=== PATIENT | female | born 1940 | race Caucasian/White ===

== ENCOUNTER 2024-05-01 15:35 | Inpatient (IN) | payer MEDICARE, OTHER ==
[~2024-05-01] VITALS: Ht 162.6 cm; Wt 30.0 kg
[2024-05-01] MEDS: ipratropium/albuterol 3ml nebule NEB STA (16:28)
[2024-05-01 17:44] LABS: BASOPHILS # (AUTO) 0.1 X10'3 (0-0.2); BASOPHILS % (AUTO) 1.1 % (0-1); EOSINOPHILS # (AUTO) 0.1 X10'3 (0-0.9); EOSINOPHILS % (AUTO) 2.5 % (0-6); HEMATOCRIT 36.4 % (35.0-45.0); HEMOGLOBIN 11.7 g/dl (12.0-16.0); LYMPHOCYTES # (AUTO) 1.7 X10'3 (1.1-4.8); MEAN CORPUSCULAR HEMOGLOBIN 32.5 PG (27.0-31.0); MEAN CORPUSCULAR HGB CONC 32.3 g/dL (33.0-36.5); MEAN CORPUSCULAR VOLUME 100.6 FL (78-98); MEAN PLATELET VOLUME 10.9 FL (7.4-10.4); MONOCYTES # (AUTO) 0.4 X10'3 (0-0.9); MONOCYTES % (AUTO) 8.2 % (2-12); NEUTROPHILS # (AUTO) 2.9 X10'3 (1.8-7.7); NEUTROPHILS % (AUTO) 56.2 % (42-75); PLATELET COUNT 178 X10'3 (140-440); RED BLOOD COUNT 3.62 X10'6 (4.20-5.60); RED CELL DISTRIBUTION WIDTH 14.3 % (11.5-14.5); WHITE BLOOD COUNT 5.2 X10'3 (4.5-11.0)
[2024-05-01 17:57] LABS: ALANINE AMINOTRANSFERASE 13 U/L (12-78); ALBUMIN 3.5 G/DL (3.4-5.0); ALBUMIN/GLOBULIN RATIO 0.9 (1.1-1.5); ALKALINE PHOSPHATASE 49 IU/L (46-116); ANION GAP 4 (8-16); ASPARTATE AMINO TRANSFERASE 26 U/L (10-37); BILIRUBIN,TOTAL 0.7 MG/DL (0.1-1.0); BLOOD UREA NITROGEN 30 MG/DL (7-18); CALCIUM 8.9 MG/DL (8.5-10.1); CHLORIDE 99 MMOL/L (99-107); SODIUM 139 MMOL/L (135-145); TOTAL CARBON DIOXIDE 35.9 MMOL/L (24-32); TOTAL PROTEIN 7.4 G/DL (6.4-8.2); eCRCL 19 ML/MIN; eGFR 53 ML/MIN
[2024-05-01 18:03] LABS: GLUCOSE 95 MG/DL (70-104); PRO BRAIN NATRIURETIC PEPTIDE 5745 PG/ML (0-450)
[2024-05-01] MEDS: albuterol 2.5 MG/3 ML nebule NEB ONE (18:05)
[2024-05-01] MEDS: mag hydrox/Alum hydrox/simeth 30ml oral suspension PO ONE (18:14)
[2024-05-01] MEDS: methylPREDNISolone sod succ 125mg/2ml vial IV ONE (18:18)
[2024-05-01] MEDS ORDERED: magnesium sulf-water 4G/100mL 100 ML IV PRN (18:20)
[2024-05-01] MEDS ORDERED: magnesium Cl slow-release 64mg tablet PO PRN (18:20)
[2024-05-01] MEDS ORDERED: potassium Cl 20 mEq SR tablet PO PRN ×2 (18:20)
[2024-05-01] MEDS ORDERED: potassium Cl 40MEQ/1/2NS 520ml 520 ML IV PRN (18:20)
[2024-05-01] MEDS ORDERED: ipratropium/albuterol 3ml nebule NEB PRN (18:20)
[2024-05-01] MEDS ORDERED: magnesium sulf-water 2g/50mL 50 ML IV PRN (18:20)
[2024-05-01] MEDS ORDERED: ondansetron/PF 4mg/2ml inj IV PRN (18:20)
[2024-05-01] MEDS: PERFLUTREN PROTEIN-A MICROSPHR (Optison) 0.22 MG/ML 3ML VIAL IV ONE (18:50)
[2024-05-01 19:44] LABS: BILIRUBIN,URINE SMALL (Neg); CLARITY,URINE SLIGHTLY CLOUDY (Clear); COLOR,URINE AMBER (Yellow); GLUCOSE, URINE NEGATIVE (Neg); KETONES,URINE 15 mg/dl (Neg); LEUKOCYTE ESTERASE ,URINE NEGATIVE (Neg); NITRITES, URINE NEGATIVE (Neg); OCCULT BLOOD,URINE TRACE-INTACT (Neg); PH,URINE 5.5 (4.8-8.0); PROTEIN,URINE 100 mg/dl (Neg); UROBILINOGEN,URINE 0.2 E.U/dL (0.2-1.0)
[2024-05-01 19:45] VITALS: PULSE 85; RESP 18; O2SAT 99
[2024-05-01 19:50] LABS: UA COLLECTION TYPE NON-SPECIFIED
[2024-05-01] MEDS: K and/or MAG REPLACEMENT MC SCH (20:00)
[2024-05-01 20:08] LABS: BACTERIA,URINE 1+ /HPF (Neg); COARSE GRANULAR CAST 0-3 /LPF (NEGATIVE); FINE GRANULAR CAST 0-3 /LPF (NEGATIVE); MUCUS STRANDS FEW /LPF (Neg); RENAL CELLS, URINE MODERATE /HPF; SQUAMOUS EPITHELIAL CELL,UR MANY /LPF (FEW); TRANSITIONAL EPI CELLS,URINE FEW /HPF; WBC,URINE 0-4 /HPF (0-4)
[2024-05-01] MEDS: methylPREDNISolone sod succ/PF 40mg inj. IV SCH (21:41)
[2024-05-01] MEDS: normal saline 1000ml 1,000 ML IV SCH (21:41)
[2024-05-01] MEDS: ipratropium/albuterol 3ml nebule NEB PRN (22:34)
[2024-05-01 22:35] VITALS: PULSE 97; RESP 22; O2SAT 97
[2024-05-01 22:46] VITALS: PULSE 80; RESP 20
[2024-05-02 03:19] LABS: EOSINOPHILS % (AUTO) 0 % (0-6); MEAN CORPUSCULAR HEMOGLOBIN 32.5 PG (27.0-31.0); NEUTROPHILS # (AUTO) 2.9 X10'3 (1.8-7.7); PLATELET COUNT 166 X10'3 (140-440); WHITE BLOOD COUNT 3.1 X10'3 (4.5-11.0)
[2024-05-02 03:21] LABS: BASOPHILS % (AUTO) 0.2 % (0-1); HEMATOCRIT 33.1 % (35.0-45.0); HEMOGLOBIN 10.9 g/dl (12.0-16.0); LYMPHOCYTES # (AUTO) 0.2 X10'3 (1.1-4.8); LYMPHOCYTES % (AUTO) 7.1 % (21-51); MEAN CORPUSCULAR HGB CONC 32.9 g/dL (33.0-36.5); MEAN CORPUSCULAR VOLUME 98.9 FL (78-98); MEAN PLATELET VOLUME 10.1 FL (7.4-10.4); MONOCYTES % (AUTO) 0.5 % (2-12); NEUTROPHILS % (AUTO) 92.2 % (42-75); RED BLOOD COUNT 3.35 X10'6 (4.20-5.60); RED CELL DISTRIBUTION WIDTH 14.1 % (11.5-14.5)
[2024-05-02 03:30] LABS: ANION GAP 3 (8-16); BLOOD UREA NITROGEN 33 MG/DL (7-18); BUN/CREATININE RATIO 26.8 (10.0-20.0); CALCIUM 8.5 MG/DL (8.5-10.1); CHLORIDE 101 MMOL/L (99-107); CREATININE 1.23 MG/DL (0.40-0.90); MAGNESIUM 1.7 MG/DL (1.5-2.4); POTASSIUM 4.4 MMOL/L (3.5-5.1); SODIUM 137 MMOL/L (135-145); TOTAL CARBON DIOXIDE 33.3 MMOL/L (24-32); eCRCL 16 ML/MIN; eGFR 41 ML/MIN
[2024-05-02 03:42] LABS: GLUCOSE 163 MG/DL (70-104)
[2024-05-02 04:17] LABS: LARGE PLATELETS MODERATE; PLATELET ESTIMATE NORMAL
[2024-05-02 04:18] LABS: GIANT PLATELET FEW
[2024-05-02 10:00] VITALS: BP 141/47; PULSE 78; RESP 18; TEMP 97.5; O2SAT 97
[2024-05-02 15:11] VITALS: PULSE 79; RESP 18; O2SAT 99
[2024-05-02 18:00] VITALS: BP 138/49; PULSE 80; RESP 30; TEMP 97.9; O2SAT 98
[2024-05-02 20:00] VITALS: RESP 14; O2SAT 98
[2024-05-02 20:16] VITALS: PULSE 68; RESP 18; O2SAT 95
[2024-05-02 22:00] VITALS: BP 114/72; PULSE 77; RESP 18; TEMP 98.7; O2SAT 97
[2024-05-03] VITALS (12 sets, daily range): BP systolic 111–134; BP diastolic 40–59; PULSE 67–92; RESP 16–20; TEMP 97.8–98.2; O2SAT 96–99
[2024-05-03 07:39] LABS: BASOPHILS % (AUTO) 0.1 % (0-1); EOSINOPHILS % (AUTO) 0 % (0-6); HEMATOCRIT 31.7 % (35.0-45.0); HEMOGLOBIN 10.4 g/dl (12.0-16.0); LYMPHOCYTES # (AUTO) 0.5 X10'3 (1.1-4.8); LYMPHOCYTES % (AUTO) 8.7 % (21-51); MEAN CORPUSCULAR HEMOGLOBIN 32.4 PG (27.0-31.0); MEAN CORPUSCULAR HGB CONC 32.9 g/dL (33.0-36.5); MEAN CORPUSCULAR VOLUME 98.5 FL (78-98); MEAN PLATELET VOLUME 10.5 FL (7.4-10.4); MONOCYTES # (AUTO) 0.1 X10'3 (0-0.9); MONOCYTES % (AUTO) 1.8 % (2-12); NEUTROPHILS # (AUTO) 5.3 X10'3 (1.8-7.7); NEUTROPHILS % (AUTO) 89.4 % (42-75); PLATELET COUNT 176 X10'3 (140-440); RED BLOOD COUNT 3.22 X10'6 (4.20-5.60); RED CELL DISTRIBUTION WIDTH 13.9 % (11.5-14.5)
[2024-05-03 08:01] LABS: ALBUMIN 2.8 G/DL (3.4-5.0); ANION GAP 3 (8-16); BLOOD UREA NITROGEN 52 MG/DL (7-18); BUN/CREATININE RATIO 34.9 (10.0-20.0); CALCIUM 8.1 MG/DL (8.5-10.1); CHLORIDE 98 MMOL/L (99-107); CREATININE 1.49 MG/DL (0.40-0.90); MAGNESIUM 1.8 MG/DL (1.5-2.4); POTASSIUM 5.3 MMOL/L (3.5-5.1); SODIUM 136 MMOL/L (135-145); TOTAL CARBON DIOXIDE 34.9 MMOL/L (24-32); eCRCL 13 ML/MIN; eGFR 33 ML/MIN
[2024-05-03 08:04] LABS: GLUCOSE 118 MG/DL (70-104)
[2024-05-03] MEDS: lactose-reduced food (Ensure Enlive) - 237ml bottle PO SCH (18:00)
[2024-05-03] MEDS: dextrose 5%-normal saline 1,000 ML IV SCH (20:31)
[2024-05-04] VITALS (10 sets, daily range): BP systolic 140–150; BP diastolic 45–62; PULSE 76–83; RESP 13–18; TEMP 97.4–98.5; O2SAT 96–100
[2024-05-04] MEDS ORDERED: ALBU18HF2 IH (01:39)
[2024-05-04] MEDS ORDERED: ESTR1TAB28 PO (01:39)
[2024-05-04 07:26] LABS: EOSINOPHILS % (AUTO) 0 % (0-6); HEMATOCRIT 33.1 % (35.0-45.0); LYMPHOCYTES # (AUTO) 0.5 X10'3 (1.1-4.8); MEAN PLATELET VOLUME 10.5 FL (7.4-10.4); MONOCYTES # (AUTO) 0.7 X10'3 (0-0.9); WHITE BLOOD COUNT 7.1 X10'3 (4.5-11.0)
[2024-05-04 07:29] LABS: BASOPHILS % (AUTO) 0 % (0-1); HEMOGLOBIN 10.9 g/dl (12.0-16.0); MEAN CORPUSCULAR HEMOGLOBIN 32.8 PG (27.0-31.0); MEAN CORPUSCULAR VOLUME 99.6 FL (78-98); MONOCYTES % (AUTO) 10.4 % (2-12); NEUTROPHILS # (AUTO) 5.8 X10'3 (1.8-7.7); NEUTROPHILS % (AUTO) 82.6 % (42-75); PLATELET COUNT 175 X10'3 (140-440); RED BLOOD COUNT 3.32 X10'6 (4.20-5.60); RED CELL DISTRIBUTION WIDTH 13.7 % (11.5-14.5)
[2024-05-04 07:32] LABS: ALBUMIN 2.9 G/DL (3.4-5.0); ANION GAP 2 (8-16); BLOOD UREA NITROGEN 63 MG/DL (7-18); BUN/CREATININE RATIO 38.2 (10.0-20.0); CALCIUM 8.5 MG/DL (8.5-10.1); CHLORIDE 100 MMOL/L (99-107); CREATININE 1.65 MG/DL (0.40-0.90); MAGNESIUM 1.9 MG/DL (1.5-2.4); POTASSIUM 5.1 MMOL/L (3.5-5.1); SODIUM 137 MMOL/L (135-145); TOTAL CARBON DIOXIDE 34.9 MMOL/L (24-32); eCRCL 12 ML/MIN; eGFR 30 ML/MIN
[2024-05-04 07:37] LABS: GLUCOSE 85 MG/DL (70-104)
[2024-05-04 08:15] LABS: LARGE PLATELETS FEW; PLATELET ESTIMATE NORMAL
[2024-05-04] MEDS: azithromycin 250mg tablet PO SCH (19:57)
[2024-05-04] MEDS: CefTRIAXone/D5W-Rocephin 1gm 50 ML IV SCH (20:56)
[2024-05-05] VITALS (10 sets, daily range): BP systolic 168–175; BP diastolic 60–70; PULSE 78–94; RESP 15–20; TEMP 96.8–97.9; O2SAT 92–98
[2024-05-05 06:32] LABS: EOSINOPHILS % (AUTO) 0 % (0-6); HEMOGLOBIN 10.7 g/dl (12.0-16.0); LYMPHOCYTES # (AUTO) 0.3 X10'3 (1.1-4.8); MONOCYTES # (AUTO) 0.1 X10'3 (0-0.9)
[2024-05-05 06:34] LABS: BASOPHILS % (AUTO) 0.1 % (0-1); HEMATOCRIT 32.7 % (35.0-45.0); LYMPHOCYTES % (AUTO) 5.5 % (21-51); MEAN CORPUSCULAR HEMOGLOBIN 32.3 PG (27.0-31.0); MEAN CORPUSCULAR HGB CONC 32.7 g/dL (33.0-36.5); MEAN CORPUSCULAR VOLUME 98.8 FL (78-98); MEAN PLATELET VOLUME 10.7 FL (7.4-10.4); MONOCYTES % (AUTO) 2.5 % (2-12); NEUTROPHILS # (AUTO) 5.2 X10'3 (1.8-7.7); NEUTROPHILS % (AUTO) 91.9 % (42-75); PLATELET COUNT 167 X10'3 (140-440); RED CELL DISTRIBUTION WIDTH 14.1 % (11.5-14.5); WHITE BLOOD COUNT 5.7 X10'3 (4.5-11.0)
[2024-05-05 06:41] LABS: ALBUMIN 2.7 G/DL (3.4-5.0); ANION GAP 1 (8-16); BLOOD UREA NITROGEN 59 MG/DL (7-18); BUN/CREATININE RATIO 40.4 (10.0-20.0); CALCIUM 7.9 MG/DL (8.5-10.1); CHLORIDE 101 MMOL/L (99-107); CREATININE 1.46 MG/DL (0.40-0.90); MAGNESIUM 1.6 MG/DL (1.5-2.4); POTASSIUM 5.3 MMOL/L (3.5-5.1); SODIUM 133 MMOL/L (135-145); TOTAL CARBON DIOXIDE 30.8 MMOL/L (24-32); eCRCL 13 ML/MIN; eGFR 34 ML/MIN
[2024-05-05 06:48] LABS: GLUCOSE 122 MG/DL (70-104)
[2024-05-05] MEDS: dextrose 5%-normal saline 1,000 ML IV SCH (08:15)
[2024-05-05 09:49] LABS: LARGE PLATELETS FEW; PLATELET ESTIMATE NORMAL
[2024-05-05 09:50] LABS: BURR CELLS FEW; SCHISTOCYTES FEW
[2024-05-06] VITALS (11 sets, daily range): BP systolic 154–178; BP diastolic 56–93; PULSE 77–94; RESP 15–20; TEMP 97–98.6; O2SAT 94–98
[2024-05-06 07:08] LABS: ALBUMIN 2.6 G/DL (3.4-5.0); ANION GAP 2 (8-16); BLOOD UREA NITROGEN 59 MG/DL (7-18); BUN/CREATININE RATIO 39.6 (10.0-20.0); CALCIUM 8.1 MG/DL (8.5-10.1); CHLORIDE 102 MMOL/L (99-107); CREATININE 1.49 MG/DL (0.40-0.90); POTASSIUM 5.3 MMOL/L (3.5-5.1); SODIUM 134 MMOL/L (135-145); eCRCL 13 ML/MIN; eGFR 33 ML/MIN
[2024-05-06 07:13] LABS: BASOPHILS % (AUTO) 0.1 % (0-1); EOSINOPHILS % (AUTO) 0 % (0-6); HEMATOCRIT 33.9 % (35.0-45.0); LYMPHOCYTES # (AUTO) 0.3 X10'3 (1.1-4.8); LYMPHOCYTES % (AUTO) 5.5 % (21-51); MEAN CORPUSCULAR HEMOGLOBIN 32.1 PG (27.0-31.0); MEAN CORPUSCULAR HGB CONC 32.5 g/dL (33.0-36.5); MEAN CORPUSCULAR VOLUME 98.9 FL (78-98); MEAN PLATELET VOLUME 10.6 FL (7.4-10.4); MONOCYTES # (AUTO) 0.2 X10'3 (0-0.9); MONOCYTES % (AUTO) 4.6 % (2-12); NEUTROPHILS # (AUTO) 4.8 X10'3 (1.8-7.7); NEUTROPHILS % (AUTO) 89.8 % (42-75); PLATELET COUNT 192 X10'3 (140-440); RED BLOOD COUNT 3.42 X10'6 (4.20-5.60); RED CELL DISTRIBUTION WIDTH 14.2 % (11.5-14.5); WHITE BLOOD COUNT 5.3 X10'3 (4.5-11.0)
[2024-05-06 07:17] LABS: GLUCOSE 121 MG/DL (70-104)
[2024-05-06] MEDS: amLODIPine 5mg tablet PO SCH (13:17)
[2024-05-06] MEDS: lisinopril 5mg tablet PO SCH (18:56)
[2024-05-07 06:00] VITALS: BP 121/54; PULSE 74; RESP 14; TEMP 97.3; O2SAT 97
[2024-05-07 08:00] VITALS: RESP 14; O2SAT 97
[2024-05-07 09:53] VITALS: BP_SYST 123
[2024-05-07 10:51] VITALS: PULSE 93; RESP 15; O2SAT 97
[2024-05-07 11:00] VITALS: PULSE 94; RESP 15
[2024-05-07 13:09] LABS: BASOPHILS % (AUTO) 0.1 % (0-1); EOSINOPHILS # (AUTO) 0.6 X10'3 (0-0.9); EOSINOPHILS % (AUTO) 6.1 % (0-6); HEMATOCRIT 35.2 % (35.0-45.0); HEMOGLOBIN 11.5 g/dl (12.0-16.0); LYMPHOCYTES # (AUTO) 0.8 X10'3 (1.1-4.8); LYMPHOCYTES % (AUTO) 8.2 % (21-51); MEAN CORPUSCULAR HEMOGLOBIN 32.7 PG (27.0-31.0); MEAN CORPUSCULAR HGB CONC 32.8 g/dL (33.0-36.5); MEAN CORPUSCULAR VOLUME 99.8 FL (78-98); MEAN PLATELET VOLUME 10.6 FL (7.4-10.4); MONOCYTES # (AUTO) 0.9 X10'3 (0-0.9); MONOCYTES % (AUTO) 9.4 % (2-12); NEUTROPHILS # (AUTO) 7.5 X10'3 (1.8-7.7); NEUTROPHILS % (AUTO) 76.2 % (42-75); PLATELET COUNT 201 X10'3 (140-440); RED BLOOD COUNT 3.53 X10'6 (4.20-5.60); RED CELL DISTRIBUTION WIDTH 14.3 % (11.5-14.5); WHITE BLOOD COUNT 9.8 X10'3 (4.5-11.0)
[2024-05-07 13:18] LABS: ALBUMIN 2.5 G/DL (3.4-5.0); ANION GAP 3 (8-16); BLOOD UREA NITROGEN 60 MG/DL (7-18); BUN/CREATININE RATIO 41.7 (10.0-20.0); CALCIUM 8.3 MG/DL (8.5-10.1); CHLORIDE 101 MMOL/L (99-107); CREATININE 1.44 MG/DL (0.40-0.90); POTASSIUM 4.8 MMOL/L (3.5-5.1); SODIUM 135 MMOL/L (135-145); TOTAL CARBON DIOXIDE 31.3 MMOL/L (24-32); eCRCL 14 ML/MIN; eGFR 35 ML/MIN
[2024-05-07 13:23] LABS: GLUCOSE 93 MG/DL (70-104)
[2024-05-07 16:27] VITALS: PULSE 93; RESP 16; O2SAT 99
== END 2024-05-07 16:30 | DRG 189 ==
LOC: ER 15:36 → ED HOLD 18:19 → ORTHO 4S 05-02 09:10
PROVIDERS: ADMIT Internal Medicine; ATTEND Internal Medicine
DX: J96.20 Acute and chronic respiratory failure, unspecified whether with hypoxia or hypercapnia (principal); E43 Unspecified severe protein-calorie malnutrition; J44.1 Chronic obstructive pulmonary disease with (acute) exacerbation; Z68.1 Body mass index [BMI] 19.9 or less, adult; I50.30 Unspecified diastolic (congestive) heart failure; R64 Cachexia; N17.9 Acute kidney failure, unspecified; Z60.2 Problems related to living alone; Z66 Do not resuscitate; I27.20 Pulmonary hypertension, unspecified; E87.5 Hyperkalemia; E86.0 Dehydration; R62.7 Adult failure to thrive; Z88.1 Allergy status to other antibiotic agents; Z88.5 Allergy status to narcotic agent; Z88.8 Allergy status to other drugs, medicaments and biological substances; Z91.018 Allergy to other foods; Z91.013 Allergy to seafood; Z90.710 Acquired absence of both cervix and uterus
CPT/HCPCS: 36415; 71045; 80048; 80053; 81001; 83735; 83880; 84145; 84484; 85008; 85025; 87081; 93005; 93306; 94640; 94760; 96374; 97116; 97161; 97530; 99285; A6212; A6213; G0378; J0696; J2919; J7030; J7042

== ENCOUNTER 2024-05-19 10:55 | Inpatient (IN) | payer MEDICARE, OTHER ==
[~2024-05-19] VITALS: Ht 167.6 cm; Wt 34.5 kg
[~2024-05-19 10:55] MED LIST: ALBU18HF2 IH
[2024-05-19] MEDS: azithromycin 250mg tablet PO ONE (12:00)
[2024-05-19 12:04] LABS: BILIRUBIN,URINE NEGATIVE (Neg); CLARITY,URINE CLEAR (Clear); COLOR,URINE YELLOW (Yellow); GLUCOSE, URINE NEGATIVE (Neg); KETONES,URINE NEGATIVE (Neg); LEUKOCYTE ESTERASE ,URINE NEGATIVE (Neg); NITRITES, URINE NEGATIVE (Neg); OCCULT BLOOD,URINE NEGATIVE (Neg); PH,URINE 5.5 (4.8-8.0); PROTEIN,URINE 30 mg/dl (Neg); UROBILINOGEN,URINE 0.2 E.U/dL (0.2-1.0)
[2024-05-19 12:06] LABS: BASOPHILS # (AUTO) 0.1 X10'3 (0-0.2); EOSINOPHILS # (AUTO) 0.1 X10'3 (0-0.9); EOSINOPHILS % (AUTO) 0.7 % (0-6); LYMPHOCYTES # (AUTO) 0.5 X10'3 (1.1-4.8); LYMPHOCYTES % (AUTO) 6.9 % (21-51); MEAN CORPUSCULAR HEMOGLOBIN 32.3 PG (27.0-31.0); MEAN CORPUSCULAR HGB CONC 31.5 g/dL (33.0-36.5); MEAN CORPUSCULAR VOLUME 102.6 FL (78-98); MEAN PLATELET VOLUME 8.9 FL (7.4-10.4); MONOCYTES # (AUTO) 0.6 X10'3 (0-0.9); MONOCYTES % (AUTO) 8.2 % (2-12); NEUTROPHILS # (AUTO) 5.7 X10'3 (1.8-7.7); NEUTROPHILS % (AUTO) 83.2 % (42-75); PLATELET COUNT 192 X10'3 (140-440); RED BLOOD COUNT 3.41 X10'6 (4.20-5.60); RED CELL DISTRIBUTION WIDTH 14.7 % (11.5-14.5); WHITE BLOOD COUNT 6.8 X10'3 (4.5-11.0)
[2024-05-19 12:20] LABS: UA COLLECTION TYPE STRAIGHT CATH
[2024-05-19 12:24] LABS: ALBUMIN 2.8 G/DL (3.4-5.0); ANION GAP -3 (8-16); BLOOD UREA NITROGEN 70 MG/DL (7-18); BUN/CREATININE RATIO 51.9 (10.0-20.0); CALCIUM 9.1 MG/DL (8.5-10.1); CHLORIDE 105 MMOL/L (99-107); CREATININE 1.35 MG/DL (0.40-0.90); PRO BRAIN NATRIURETIC PEPTIDE 16447 PG/ML (0-450); SODIUM 137 MMOL/L (135-145); TOTAL CARBON DIOXIDE 35.4 MMOL/L (24-32); eCRCL 24 ML/MIN; eGFR 37 ML/MIN
[2024-05-19 12:25] LABS: AMORPHOUS URATES 1+; RBC,URINE 0-2 /HPF (0-2); SQUAMOUS EPITHELIAL CELL,UR FEW /LPF (FEW); TRANSITIONAL EPI CELLS,URINE FEW /HPF; WBC,URINE 0-4 /HPF (0-4)
[2024-05-19 12:25] LABS: GLUCOSE 116 MG/DL (70-104)
[2024-05-19 12:26] LABS: BACTERIA,URINE FEW /HPF (Neg)
[2024-05-19 12:27] LABS: POTASSIUM 7.4 MMOL/L (3.5-5.1)
[2024-05-19] MEDS: CALCIUM GLUC 1gm/50ml NACL,iso 50 ML IV PRN (13:06)
[2024-05-19] MEDS: dextrose 50%-water 50ml dispensing syringe IV ONE ×2 (13:09→17:12)
[2024-05-19] MEDS: methylPREDNISolone sod succ/PF 40mg inj. IV ONE (13:10)
[2024-05-19] MEDS: insulin regular, human 10 units/0.1 ml syringe IV ONE (13:11)
[2024-05-19] MEDS: magnesium sulf-water 2g/50mL 50 ML IV ONE (13:14)
[2024-05-19] MEDS: CefTRIAXone/D5W-Rocephin 1gm 50 ML IV ONE (13:16)
[2024-05-19] MEDS: sodium polystyrene sulfonate 15gm/60ml oral suspension PO ONE ×2 (13:20→16:05)
[2024-05-19] MEDS: CALCIUM GLUC 1gm/50ml NACL,iso 50 ML IV ONE ×2 (16:05→20:06)
[2024-05-19] MEDS ORDERED: potassium Cl 20 mEq SR tablet PO PRN ×2 (16:10)
[2024-05-19] MEDS ORDERED: ondansetron/PF 4mg/2ml inj IV PRN (16:10)
[2024-05-19] MEDS ORDERED: potassium Cl 40MEQ/1/2NS 520ml 520 ML IV PRN (16:10)
[2024-05-19] MEDS ORDERED: magnesium sulf-water 4G/100mL 100 ML IV PRN (16:10)
[2024-05-19] MEDS ORDERED: acetaminophen 325mg tablet PO PRN ×2 (16:10)
[2024-05-19] MEDS ORDERED: magnesium sulf-water 2g/50mL 50 ML IV PRN (16:10)
[2024-05-19] MEDS ORDERED: magnesium Cl slow-release 64mg tablet PO PRN (16:10)
[2024-05-19] MEDS: insulin regular, human 10 units/0.1 ml syringe SQ ONE (17:15)
[2024-05-19] MEDS: sodium chloride 0.45% 1,000 ML IV SCH (17:28)
[2024-05-19] MEDS: ipratropium/albuterol 3ml nebule NEB PRN (18:00)
[2024-05-19 18:05] VITALS: PULSE 88; RESP 26; O2SAT 96
[2024-05-19 18:11] VITALS: PULSE 86; RESP 25
[2024-05-19] MEDS: methylPREDNISolone sod succ 125mg/2ml vial IV SCH (20:07)
[2024-05-19] MEDS: heparin, porcine 5000 units/ml vial SQ SCH (20:09)
[2024-05-19 20:17] VITALS: PULSE 85; RESP 24; O2SAT 96
[2024-05-19] MEDS: albuterol 2.5 MG/3 ML nebule NEB SCH (20:17)
[2024-05-19] MEDS: albuterol 2.5 MG/3 ML nebule CONTNEB ONE (20:20)
[2024-05-19 20:24] VITALS: PULSE 85; RESP 20
[2024-05-19 23:08] VITALS: PULSE 84; RESP 24; O2SAT 92
[2024-05-19 23:16] VITALS: PULSE 100; RESP 22
[2024-05-20] VITALS (13 sets, daily range): BP systolic 69–147; BP diastolic 25–55; PULSE 58–84; RESP 16–30; TEMP 96.7–98.2; O2SAT 85–100
[2024-05-20 07:12] LABS: BASOPHILS % (AUTO) 0.3 % (0-1); EOSINOPHILS % (AUTO) 0 % (0-6); HEMOGLOBIN 10.2 g/dl (12.0-16.0); LYMPHOCYTES # (AUTO) 0.3 X10'3 (1.1-4.8); LYMPHOCYTES % (AUTO) 3.9 % (21-51); MEAN CORPUSCULAR HEMOGLOBIN 32.6 PG (27.0-31.0); MEAN CORPUSCULAR HGB CONC 31.9 g/dL (33.0-36.5); MEAN CORPUSCULAR VOLUME 102.2 FL (78-98); MEAN PLATELET VOLUME 9.6 FL (7.4-10.4); MONOCYTES # (AUTO) 0.2 X10'3 (0-0.9); MONOCYTES % (AUTO) 2.2 % (2-12); NEUTROPHILS # (AUTO) 6.6 X10'3 (1.8-7.7); NEUTROPHILS % (AUTO) 93.6 % (42-75); PLATELET COUNT 184 X10'3 (140-440); RED BLOOD COUNT 3.13 X10'6 (4.20-5.60); RED CELL DISTRIBUTION WIDTH 14.2 % (11.5-14.5); WHITE BLOOD COUNT 7.1 X10'3 (4.5-11.0)
[2024-05-20 07:41] LABS: ALANINE AMINOTRANSFERASE 30 U/L (12-78); ALBUMIN 2.9 G/DL (3.4-5.0); ALBUMIN/GLOBULIN RATIO 0.7 (1.1-1.5); ALKALINE PHOSPHATASE 51 IU/L (46-116); ANION GAP 3 (8-16); ASPARTATE AMINO TRANSFERASE 25 U/L (10-37); BILIRUBIN,TOTAL 0.3 MG/DL (0.1-1.0); BLOOD UREA NITROGEN 77 MG/DL (7-18); BUN/CREATININE RATIO 46.4 (10.0-20.0); CALCIUM 9.3 MG/DL (8.5-10.1); CHLORIDE 102 MMOL/L (99-107); CREATININE 1.66 MG/DL (0.40-0.90); SODIUM 135 MMOL/L (135-145); TOTAL CARBON DIOXIDE 30.4 MMOL/L (24-32); TOTAL PROTEIN 6.9 G/DL (6.4-8.2); eCRCL 20 ML/MIN; eGFR 29 ML/MIN
[2024-05-20 07:46] LABS: GLUCOSE 117 MG/DL (70-104)
[2024-05-20 07:47] LABS: POTASSIUM 8.2 MMOL/L (3.5-5.1)
[2024-05-20] MEDS ORDERED: ESTR1TAB28 (07:53)
[2024-05-20] MEDS ORDERED: NITR100C11 PO (07:53)
[2024-05-20] MEDS ORDERED: LEVO25TA7 PO (07:53)
[2024-05-20] MEDS ORDERED: albuterol 2.5 MG/3 ML nebule NEB PRN (08:00)
[2024-05-20] MEDS: SODIUM ZIRCONIUM CYCLOSILICATE 10 GM POWD.PACK PO SCH (08:00)
[2024-05-20] MEDS: albuterol 2.5 MG/3 ML nebule CONTNEB SCH (08:00)
[2024-05-20] MEDS: ipratropium/albuterol 3ml nebule NEB SCH (08:19)
[2024-05-20] MEDS: calcium chloride 100 MG/1 ML inj IV ONE (08:32)
[2024-05-20] MEDS: sodium bicarbonate (8.4%) 1 mEq/ml syringe IV ONE (08:32)
[2024-05-20] MEDS: dextrose 50%-water 50ml dispensing syringe IV ONE (08:32)
[2024-05-20] MEDS: CefTRIAXone 2gm/D5W 50ml BAG 50 ML IV SCH (08:32)
[2024-05-20] MEDS: insulin regular, human 10 units/0.1 ml syringe SQ ONE (08:36)
[2024-05-20] MEDS: morphine 2 MG/ML inj. syringe IV STA (10:54)
[2024-05-20] MEDS ORDERED: morphine 2 MG/ML inj. syringe IV PRN (11:35)
[2024-05-20] MEDS ORDERED: LORazepam 0.5 MG tablet PO PRN (11:35)
[2024-05-20] MEDS: morphine 10mg/0.5ml (conc. morphine) oral syringe PO PRN (13:51)
[2024-05-20] MEDS: hyoscyamine 0.125mg TAB.SUBL SL PRN (13:52)
[2024-05-20] MEDS: LORazepam 2 mg/ml vial IV PRN (16:36)
[2024-05-21 06:00] VITALS: BP 90/36; PULSE 77; RESP 17; TEMP 97.4; O2SAT 92
[2024-05-21 08:00] VITALS: RESP 17; O2SAT 92
[2024-05-21 11:00] VITALS: BP 86/37; PULSE 76; RESP 19; TEMP 96.7; O2SAT 93
[2024-05-21 15:00] VITALS: BP 81/42; PULSE 75; RESP 23; TEMP 96.7; O2SAT 99
== END 2024-05-21 18:00 | DRG 682 ==
LOC: ER 10:56 → ED HOLD 16:11 → PCU 3S 23:42
PROVIDERS: ADMIT Internal Medicine; ATTEND Internal Medicine
PROC: 5A0935A Assistance with Respiratory Ventilation, Less than 24 Consecutive Hours, High Flow/Velocity Cannula (ICD-10-PCS; principal; 2024-05-20)
DX: N17.0 Acute kidney failure with tubular necrosis (principal); E43 Unspecified severe protein-calorie malnutrition; I50.33 Acute on chronic diastolic (congestive) heart failure; J96.00 Acute respiratory failure, unspecified whether with hypoxia or hypercapnia; J44.1 Chronic obstructive pulmonary disease with (acute) exacerbation; Z68.1 Body mass index [BMI] 19.9 or less, adult; E87.5 Hyperkalemia; Z66 Do not resuscitate; R62.7 Adult failure to thrive; N18.30 Chronic kidney disease, stage 3 unspecified; F03.90 Unspecified dementia, unspecified severity, without behavioral disturbance, psychotic disturbance, mood disturbance, and anxiety; Z88.1 Allergy status to other antibiotic agents; Z88.5 Allergy status to narcotic agent; Z51.5 Encounter for palliative care; Z99.81 Dependence on supplemental oxygen; Z91.018 Allergy to other foods; Z91.013 Allergy to seafood
CPT/HCPCS: 36415; 71045; 80048; 80053; 81001; 82948; 83605; 83880; 84132; 85025; 87081; 92508; 92616; 93005; 94640; 94760; 99285; A4353; A4624; A4628; A6212; A6213; A6449; G0378; J0610; J0696; J1644; J1815; J2060; J2270; J2919; J3490